=== PATIENT | male | born 1970 | race African-American/Black ===

== ENCOUNTER 2016-12-25 20:33 | Emergency (ER) | payer SELFPAY ==
[2016-12-25] MEDS ORDERED: Acetaminophen TAB* 325 MG PO ONE (21:59)
[2016-12-25] MEDS ORDERED: Ondansetron INJ* 2 MG/ML VIAL IV ONE (22:19)
[2016-12-25] MEDS ORDERED: Ketorolac INJ* 30 MG/ML 1 ML VIAL IV ONE (22:19)
[2016-12-25] MEDS: NS 0.9% 1000 ML* 2,000 ML IV ONE ×2 (22:22→23:05)
[2016-12-25] MEDS ORDERED: Oseltamivir CAP* 75 MG PO ONE (22:31)
[2016-12-25 22:36] LABS: Hematocrit 39 % (42-52); Hemoglobin 12.9 g/dl (14.0-18.0); Mean Corpuscular HGB Conc 34 g/dl (31-36); Mean Corpuscular Hemoglobin 28 pg (27-31); Mean Corpuscular Volume 85 fL (80-94); Mean Platelet Volume 8 um3 (7.4-10.4); Red Blood Count 4.55 10^6/ul (4.0-5.4); Red Cell Distribution Width 14 % (10.5-15); White Blood Count 9.7 10^3/ul (3.5-10.8)
[2016-12-25 22:47] LABS: Albumin 3.9 g/dL (3.2-5.2); BUN/Creatinine Ratio 8.2 (8-20); C Reactive Protein 12.09 mg/L (< 5.00); EGFR African American 108.1 (>60); EGFR Non-African American 84.1 (>60); Globulin 3.2 g/dL (2-4); Potassium 3.9 mmol/L (3.5-5.0); Total Bilirubin 0.5 mg/dL (0.2-1.0); Total Protein 7.1 g/dL (6.4-8.9)
--- NOTE | 2016-12-25 23:20 | ED ---
Influenza-Like Illness - HPI Summary HPI Summary: Yesterday evening the patient began to not feel well and this AM developed a fever with cough, nausea, vomiting, bodyaches and headache. He has taken ibuprofen several times today without relief. He now feels nauseous and has vomited twice. He has been exposed to family members who have the flu. He denies CP, SOB, abdominal or neck pain. He has had minimal fluids and food today. - History of Current Complaint Chief Complaint: EDHeadache Time Seen by Provider: 12/25/16 21:58 Hx Obtained From: Patient, Family/Reflow Operator Onset/Duration: Gradual Onset Severity: Severe Associated Signs & Symptoms: Fever, Myalgia, Cough, Nasal Congestion, Headache, Vomiting Related Hx: Possible Flu/Infectious Exposure - Allergy/Home Medications Allergies/Adverse Reactions: Allergies Allergy/AdvReac Type Severity Reaction Status Date / Time No Known Allergies Allergy Verified 12/25/16 20:39 PMH/Surg Hx/FS Hx/Imm Hx Previously Healthy: Yes Infectious Disease History: No Infectious Disease History: Denies: Traveled Outside the [place] in Last 30 Days - Family History Known Family History: Positive: Hypertension - Social History Occupation: Employed Part-time Lives: With Family Alcohol Use: Rare Substance Use Type: Reports: None Substance Use Comment - Amount & Last Used: denies Smoking Status (MU): Current Every Day Smoker Cessation Counseling: Patient Advised to Stop Review of Systems Positive: Fever, Chills, Fatigue Negative: Sore Throat, Ear Ache Negative: Chest Pain Positive: Cough. Negative: Shortness Of Breath Positive: Vomiting, Nausea. Negative: Abdominal Pain, Diarrhea Positive: Myalgia Negative: Rash Positive: Headache All Other Systems Reviewed And Are Negative: Yes Physical Exam Triage Information Reviewed: Yes Vital Signs On Initial Exam: Initial Vitals Temp Pulse Resp BP Pulse Ox 100.4 F 117 22 107/72 97 12/25/16 20:39 12/25/16 20:39 12/25/16 20:39 12/25/16 20:39 12/25/16 20:39 Vital Signs Reviewed: Yes Appearance: Positive: Well-Appearing, Well-Nourished, Pain Distress Skin: Positive: Warm, Skin Color Reflects Adequate Perfusion, Dry, Soft Head/Face: Positive: Normal Head/Face Inspection Eyes: Positive: EOMI, ABIMAEL, Conjunctiva Clear ENT: Positive: Hearing grossly normal, Pharynx normal, TMs normal Neck: Positive: Supple, Nontender, No Lymphadenopathy. Negative: Nuchal Rigidity Respiratory/Lung Sounds: Positive: Clear to Auscultation, Breath Sounds Present Cardiovascular: Positive: RRR Abdomen Description: Positive: Nontender, Soft Bowel Sounds: Positive: Present Musculoskeletal: Positive: Strength/ROM Intact. Negative: Edema Left, Edema Right Neurological: Positive: Sensory/Motor Intact, Alert, Oriented to Person Place, Time, NV Bundle Intact Distally Psychiatric: Positive: Affect/Mood Appropriate AVPU Assessment: Alert - [place] Coma Scale Coma Scale Total: 15 Diagnostics - Vital Signs Vital Signs Temp Pulse Resp BP Pulse Ox 12/25/16 21:30 102.4 F 103 20 92/65 100 12/25/16 20:39 100.4 F 117 22 107/72 97 - Laboratory Lab Results: Lab Results 12/25/16 12/25/16 12/25/16 Range/Units 21:50 21:50 22:08 WBC 9.7 (3.5-10.8) 10^3/ul RBC 4.55 (4.0-5.4) 10^6/ul Hgb 12.9 L (14.0-18.0) g/dl Hct 39 L (42-52) % MCV 85 (80-94) fL MCH 28 (27-31) pg MCHC 34 (31-36) g/dl RDW 14 (10.5-15) % Plt Count 177 (150-450) 10^3/ul MPV 8 (7.4-10.4) um3 Neut % (Auto) 73.2 (38-83) % Lymph % (Auto) 12.1 L (25-47) % Ballard % (Auto) 14.3 H (1-9) % Eos % (Auto) 0.1 (0-6) % Baso % (Auto) 0.3 (0-2) % Absolute Neuts (auto) 7.1 (1.5-7.7) 10^3/ul Absolute Lymphs (auto) 1.2 (1.0-4.8) 10^3/ul Absolute Monos (auto) 1.4 H (0-0.8) 10^3/ul Absolute Eos (auto) 0 (0-0.6) 10^3/ul Absolute Basos (auto) 0 (0-0.2) 10^3/ul Absolute Nucleated RBC 0.01 10^3/ul Nucleated RBC % 0.1 Sodium 134 (133-145) mmol/L Potassium 3.9 (3.5-5.0) mmol/L Chloride 106 (101-111) mmol/L Carbon Dioxide 22 (22-32) mmol/L Anion Gap 6 (2-11) mmol/L BUN 8 (6-24) mg/dL Creatinine 0.97 (0.67-1.17) mg/dL Est GFR ( Amer) 108.1 (>60) Est GFR (Non-Af Amer) 84.1 (>60) BUN/Creatinine Ratio 8.2 (8-20) Glucose 123 H (70-100) mg/dL Calcium 9.0 (8.6-10.3) mg/dL Total Bilirubin 0.50 (0.2-1.0) mg/dL AST 21 (13-39) U/L ALT 11 (7-52) U/L Alkaline Phosphatase 50 (34-104) U/L C-Reactive Protein 12.09 H (< 5.00) mg/L Total Protein 7.1 (6.4-8.9) g/dL Albumin 3.9 (3.2-5.2) g/dL Globulin 3.2 (2-4) g/dL Albumin/Globulin Ratio 1.2 (1-3) Influenza A (Rapid) Positive H (Negative) Influenza B (Rapid) Negative (Negative) Result Diagrams: 12/25/16 21:50 12/25/16 21:50 Lab Statement: Any lab studies that have been ordered have been reviewed, and results considered in the medical decision making process. Re-Evaluation - Re-Evaluation First Eval Re-Evaluation Time: 23:25 Change: Improved Comment: patient is more comfortable Flu Symptom Course/Dx - Diagnoses Differential Diagnosis/HQI/PQRI: Positive: Bronchitis, Influenza, Pneumonia, RSV , Upper Respiratory Infection Provider Diagnoses: Influenza Discharge - Discharge Plan Condition: Stable Disposition: HOME Prescriptions: Oseltamivir CAP* [Tamiflu CAP*] 75 mg PO BID #9 cap Patient Education Materials: Influenza (ED) Referrals: [facility] [Outside] Additional Instructions: Please take the Tamiflu prescription until it is completely gone. Also take ibuprofen (which is Advil) 600mg every 6 hours, and Tylenol 650 mg every 4 hours to keep your fever and body aches reduced. Get plenty of rest and drink extra fluids while you recover. You can call the number provided to establish care with a regular provider for follow-up care. Return to the emergency department if your symptoms worsen.
[2016-12-26 00:06] VITALS: BP 111/71
== END 2016-12-26 00:04 | disposition home or self-care (01) ==
LOC: ED 20:33
DX: J11.1 Influenza due to unidentified influenza virus with other respiratory manifestations (principal); R50.9 Fever, unspecified; R05 Cough; R11.2 Nausea with vomiting, unspecified; R51 Headache; F17.210 Nicotine dependence, cigarettes, uncomplicated
CPT/HCPCS: 36415; 80053; 85025; 86140; 87502; 96374; 96375; 99283; A9270-GY; J1885; J2405

== ENCOUNTER 2017-08-27 08:41 | Emergency (ER) | payer OTHER ==
[2017-08-27 09:07] VITALS: BP 119/82
--- NOTE | 2017-08-27 09:59 | ED ---
Skin Complaint - HPI Summary HPI Summary: 47 male presents to ED with complaints of what he believes is an infected bug bite just under left eye that began yesterday. Patient states when he woke up this morning it was much worse, redness, swollen, with discharge and pain. Patient states it came to a head and he popped it this morning. However it is still very painful and swollen. Denies eye involvement and vision changes. Has been applying hydrocortisone cream with some improvement. Admits to pruritis. No current discharge, it is just crusted with redness. Denies any other similar wounds or rashes. Denies PMHx. No other medications. Denies known source however thought it was an insect/spider bite. No other complaints at this time. Denies fever. - History of Current Complaint Chief Complaint: EDRashSkinAbscess Time Seen by Provider: 08/27/17 09:24 Stated Complaint: LT EYE PAIN Hx Obtained From: Patient Onset/Duration: Started Days Ago - yesterday 08/26/17, Still Present, Worse Since Skin Exposure Onset/Duration: Days Ago - yesterday morning Timing: Constant Onset Severity: Moderate Current Severity: Moderate Pain Intensity: 5 Pain Scale Used: 0-10 Numeric Skin Location: Face - left cheek, under left eye Character: Swelling, Pruritus, Redness, Raised, Painful Aggravating Symptom(s): Touch Alleviating Symptom(s): Treatment ST[employer]: - hydrocortisone cream, "popping it" Associated Signs & Symptoms: Rash Related History: Possible Reaction to: Insect - Allergy/Home Medications Allergies/Adverse Reactions: Allergies Allergy/AdvReac Type Severity Reaction Status Date / Time No Known Allergies Allergy Verified 08/27/17 09:03 PMH/Surg Hx/FS Hx/Imm Hx Endocrine/Hematology History: Denies: Hx Diabetes Cardiovascular History: Denies: Hx Hypertension Respiratory History: Denies: Hx Asthma - Surgical History Surgery Procedure, Year, and Place: n/a - Immunization History Immunizations Up to Date: Yes Infectious Disease History: No Infectious Disease History: Denies: Traveled Outside the [place] in Last 30 Days - Family History Known Family History: Positive: Hypertension - Social History Alcohol Use: Occasionally Substance Use Type: Reports: None Substance Use Comment - Amount & Last Used: denies Smoking Status (MU): Current Every Day Smoker Review of Systems Constitutional: Negative Eyes: Negative Cardiovascular: Negative Respiratory: Negative Positive: Rash - face, +/-bug bite All Other Systems Reviewed And Are Negative: Yes Physical Exam Triage Information Reviewed: Yes Vital Signs On Initial Exam: Initial Vitals Temp Pulse Resp BP Pulse Ox 97.8 F 71 16 119/82 100 08/27/17 08:51 08/27/17 08:51 08/27/17 08:51 08/27/17 08:51 08/27/17 08:51 Vital Signs Reviewed: Yes Appearance: Positive: Well-Appearing, No Pain Distress, Well-Nourished Skin: Positive: Warm, Skin Color Reflects Adequate Perfusion, Dry, Tender - at cellulitis left cheek, Erythema @ - under left eye, on left cheek, with noteable raised circular head crusted over, without current discharge. surrounding mild cellulitis, no blanchable, warm to touch, tender. No eye/ periorbital involvement. rest of skin exam normal. Negative: Cold, Numb, Cyanosis @, Diaphoretic, Jaundiced, Pale, Mass @ Head/Face: Positive: Normal Head/Face Inspection. Negative: Scalp Eyes: Positive: Normal, EOMI, ABIMAEL, Conjunctiva Clear ENT: Positive: Normal ENT inspection, Hearing grossly normal, Pharynx normal, TMs normal Neck: Positive: Supple, Nontender, No Lymphadenopathy Respiratory/Lung Sounds: Positive: Clear to Auscultation, Breath Sounds Present. Negative: Decreased Breath Sounds, Rales, Rhonchi, Wheezes Cardiovascular: Positive: Normal, RRR, Pulses are Symmetrical in both Upper and Lower Extremities. Negative: Murmur, Rub Abdomen Description: Positive: Nontender Bowel Sounds: Positive: Present Musculoskeletal: Positive: Normal, Strength/ROM Intact Neurological: Positive: Normal, Sensory/Motor Intact, Alert, Oriented to Person Place, Time Psychiatric: Positive: Affect/Mood Appropriate - Haylee Coma Scale Coma Scale Total: 15 Diagnostics - Vital Signs Vital Signs Temp Pulse Resp BP Pulse Ox 08/27/17 08:51 97.8 F 71 16 119/82 100 - Laboratory Lab Statement: Any lab studies that have been ordered have been reviewed, and results considered in the medical decision making process. Course/Dx - Course Course Of Treatment: no discharge availabel for culture. appears patient is suffering from infected wound with mild surrounding cellulitis. in fear of it worsening and due to location with give oral antibotic, apply triple anitbiotic topically and continue hydrocortisone for pruritis/edema 1-2 daily as needed. warm/cool compresses. ibuprofen for fever and pain. no fever or concern for other etiology. Follow up PCP. Aware of worsening signs and symptoms. - Differential Diagnoses - Skin Complaint Differential Diagnoses: Abscess, Allergic Reaction, Cellulitis, Local Allergic Reaction, MRSA - Diagnoses Provider Diagnoses: Cellulitis of face Discharge - Discharge Plan Condition: Stable Disposition: HOME Prescriptions: Cephalexin CAP* [Keflex CAP*] 500 mg PO BID #14 cap Ibuprofen TAB* [Motrin TAB* 600 MG] 600 mg PO Q8H PRN #15 tab PRN Reason: Pain Patient Education Materials: Cellulitis (ED) Referrals: Imer Lew MD [Primary Care Provider] - Additional Instructions: Take prescribed antibiotic as directed until entire dose is finished, even if symptoms do not improve. Ibuprofen for discomfort and inflammation, only as needed. Take with food. Apply triple antibiotic ointment such as neosporin or bacitracin multiple times daily. Continue use of hydrocortinsone cream twice daily for itching and redness. Apply warm/cool compresses daily, as discussed. Do not pick at. Keep clean and dry. If symptoms worsen or do not improve please seek medical attention. Follow up with primary care provider.
== END 2017-08-27 10:07 | disposition home or self-care (01) ==
LOC: ED 08:41
DX: L03.211 Cellulitis of face (principal); R21 Rash and other nonspecific skin eruption; F17.210 Nicotine dependence, cigarettes, uncomplicated; T14.8XXA Other injury of unspecified body region, initial encounter; W57.XXXA Bitten or stung by nonvenomous insect and other nonvenomous arthropods, initial encounter; Y93.9 Activity, unspecified; Y92.9 Unspecified place or not applicable
CPT/HCPCS: 99281

== ENCOUNTER → 2017-09-25 08:04 | Emergency (ER) | payer OTHER ==
[~2017-09-25 08:04] MED LIST: Ketorolac INJ* 60 MG/2 ML VIAL IM ONE
[2017-09-25 08:12] VITALS: BP 115/74
--- NOTE | 2017-09-25 18:47 | ED ---
Chuck Clay Angela, scribed for Simba Gupta MD on 09/25/17 at 0821 . Throat Pain/Nasal Congestion - HPI Summary HPI Summary: This pt is a 47 y/o male presenting to [facility] c/o dental pain. Pt reports he has a dental appointment on October 04. He notes he is here because the pain is not tolerable and he needs to go to work. - History of Current Complaint Chief Complaint: EDDentalPain Time Seen by Provider: 09/25/17 08:18 Hx Obtained From: Patient Onset/Duration: Lasting Days, Still Present Severity: Severe Associated Signs And Symptoms: Negative: Dysphagia, FB Sensation, Drooling, Wheezing, Hoarseness, Sinus Discomfort, Nasal Discharge Cough: None - Allergies/Home Medications Allergies/Adverse Reactions: Allergies Allergy/AdvReac Type Severity Reaction Status Date / Time No Known Allergies Allergy Verified 09/25/17 08:12 PMH/Surg Hx/FS Hx/Imm Hx Endocrine/Hematology History: Denies: Hx Diabetes Cardiovascular History: Reports: Hx Hypercholesterolemia, Hx Hypertension Respiratory History: Denies: Hx Asthma - Surgical History Surgery Procedure, Year, and Place: n/a Infectious Disease History: No Infectious Disease History: Denies: Traveled Outside the [place] in Last 30 Days - Family History Known Family History: Positive: Hypertension - Social History Alcohol Use: Occasionally Substance Use Type: Reports: None Substance Use Comment - Amount & Last Used: denies Smoking Status (MU): Current Every Day Smoker Review of Systems Negative: Fever, Chills Eyes: Negative Positive: Dental Pain Cardiovascular: Negative Respiratory: Negative Gastrointestinal: Negative All Other Systems Reviewed And Are Negative: Yes Physical Exam - Summary Physical Exam Summary: VITAL SIGNS: Reviewed. GENERAL: Patient is a well-developed and nourished male. Patient is not in any acute respiratory distress. HEAD AND FACE: No signs of trauma. No ecchymosis, hematomas or skull depressions. No sinus tenderness. EYES: PERRLA, EOMI x 2, No injected conjunctiva, no nystagmus. EARS: Hearing grossly intact. Ear canals and tympanic membranes are within normal limits. MOUTH: Oropharynx within normal limits. There is diffuse dental cavities. There are no signs of gingivitis, no trismus, no swelling of the tongue or lips. NECK: Supple, trachea is midline, no adenopathy, no JVD, no carotid bruit, no c- spine tenderness, neck with full ROM. CHEST: Symmetric, no tenderness at palpation LUNGS: Clear to auscultation bilaterally. No wheezing or crackles. CVS: Regular rate and rhythm, S1 and S2 present, no murmurs or gallops appreciated. ABDOMEN: Soft, non-tender. No signs of distention. No rebound no guarding, and no masses palpated. Bowel sounds are normal. EXTREMITIES: FROM in all major joints, no edema, no cyanosis or clubbing. NEURO: Alert and oriented x 3. No acute neurological deficits. Speech is normal and follows commands. SKIN: Dry and warm Triage Information Reviewed: Yes Vital Signs On Initial Exam: Initial Vitals Temp Pulse Resp BP Pulse Ox 97.7 F 68 14 115/74 99 09/25/17 08:09 09/25/17 08:09 09/25/17 08:09 09/25/17 08:09 09/25/17 08:09 Vital Signs Reviewed: Yes Diagnostics - Vital Signs Vital Signs Temp Pulse Resp BP Pulse Ox 09/25/17 08:09 97.7 F 68 14 115/74 99 - Laboratory Lab Statement: Any lab studies that have been ordered have been reviewed, and results considered in the medical decision making process. EENT Course/Dx - Course Assessment/Plan: This pt is a 47 y/o male presenting to [facility] c/o dental pain. Pt reports he has a dental appointment on October 04. He notes he is here because the pain is not tolerable and he needs to go to work. The pt has dental cavities and dental pain. The pt was given toradol for the pain and also amoxicillin. At this point he will be discharged home with follow up from his dentist. The pt will be given a prescription for ibuprofen, norco, and amoxicillin. The pt was instructed that he needs to follow up with his dentist. He understands and agrees. Pt is hemodynamically stable, alert and oriented x3. - Differential Diagnoses Differential Diagnoses: Other - Dental pain, Dental cavities, gingivitis - Diagnoses Provider Diagnoses: Dental cavities Discharge - Discharge Plan Condition: Stable Disposition: HOME Prescriptions: Amoxicillin PO (*) [Amoxicillin 875 MG (*)] 875 mg PO BID #20 tab HYDROcodone/ACETAMIN 5-325 MG* [Brumley 5-325 TAB*] 1 tab PO Q4H PRN #12 tab MDD 4 PRN Reason: Pain Ibuprofen TAB* [Motrin TAB* 600 MG] 600 mg PO Q8H PRN #20 tab PRN Reason: Pain Patient Education Materials: Cavity Preventive (For the teeth or gums) Forms: *Work Release Referrals: Imer Lew MD [Primary Care Provider] - Additional Instructions: See your dentist as scheduled on Oct.04. RETURN TO THE ED FOR ANY WORSENING SYMPTOMS. The documentation as recorded by the Chuck concepcion Angela accurately reflects the service I personally performed and the decisions made by Alonso ellis Walter, MD.
== END | disposition home or self-care (01) ==
LOC: ED 08:04
DX: K02.9 Dental caries, unspecified (principal); K08.89 Other specified disorders of teeth and supporting structures; E78.00 Pure hypercholesterolemia, unspecified; I10 Essential (primary) hypertension; F17.210 Nicotine dependence, cigarettes, uncomplicated
CPT/HCPCS: 96372; 99281; J1885

== ENCOUNTER 2018-01-08 11:33 | Emergency (ER) | payer MEDICAID, OTHER ==
[2018-01-08] MEDS ORDERED: Lidocaine 1% INJ* 10 MG/ML 30 ML SDV INJ ONE (12:17)
--- NOTE | 2018-01-08 12:20 | ED ---
Skin Complaint - HPI Summary HPI Summary: 47-year-old male presents with left abscess on his cheek for the past day. He denies any fevers. He denies any chills. He states he put some warm compresses on the area and came to the head. It started as a pimple. He denies any discharge from the area. Denies any dental pain. He denies any sinus pain. denies any history of mrsa. He is not diabetic. - History of Current Complaint Chief Complaint: EDRashSkinAbscess Time Seen by Provider: 01/08/18 11:42 Stated Complaint: ABCESS ON LT CHEEK Pain Intensity: 10 - Allergy/Home Medications Allergies/Adverse Reactions: Allergies Allergy/AdvReac Type Severity Reaction Status Date / Time No Known Allergies Allergy Verified 09/25/17 08:12 PMH/Surg Hx/FS Hx/Imm Hx Endocrine/Hematology History: Denies: Hx Diabetes Cardiovascular History: Reports: Hx Hypercholesterolemia, Hx Hypertension Respiratory History: Denies: Hx Asthma - Surgical History Surgery Procedure, Year, and Place: n/a Infectious Disease History: No Infectious Disease History: Denies: Traveled Outside the [place] in Last 30 Days - Family History Known Family History: Positive: Hypertension - Social History Alcohol Use: Occasionally Substance Use Type: Reports: None Substance Use Comment - Amount & Last Used: denies Smoking Status (MU): Current Every Day Smoker Review of Systems Negative: Fever Negative: Chest Pain Negative: Shortness Of Breath Positive: Other - left cheek abscess All Other Systems Reviewed And Are Negative: Yes Physical Exam Triage Information Reviewed: Yes Vital Signs On Initial Exam: Initial Vitals Temp Pulse Resp BP Pulse Ox 97.9 F 82 16 117/77 98 01/08/18 11:34 01/08/18 11:34 01/08/18 11:34 01/08/18 11:34 01/08/18 11:34 Vital Signs Reviewed: Yes Appearance: Positive: Well-Appearing Skin: Positive: Other - 3cm by 2cm abscess to left cheek Eyes: Positive: Normal, EOMI, ABIMAEL, Conjunctiva Clear ENT: Positive: Normal ENT inspection, Pharynx normal, TMs normal Respiratory/Lung Sounds: Positive: Clear to Auscultation, Breath Sounds Present Cardiovascular: Positive: Normal, RRR Musculoskeletal: Positive: Normal Neurological: Positive: Normal Psychiatric: Positive: Normal Procedures - Incision and Drainage Site: left cheek Anesthesia: Local Instrument(s): Scalpel Diagnostics - Vital Signs Vital Signs Temp Pulse Resp BP Pulse Ox 01/08/18 11:34 97.9 F 82 16 117/77 98 - Laboratory Lab Statement: Any lab studies that have been ordered have been reviewed, and results considered in the medical decision making process. Course/Dx - Course Course Of Treatment: 47-year-old male presents with left abscess on his cheek for the past day. He denies any fevers. He denies any chills. He states he put some warm compresses on the area and came to the head. It started as a pimple. He denies any discharge from the area. Denies any dental pain. He denies any sinus pain. denies any history of mrsa. He is not diabetic. on exam has abscess to left cheek that successfully I&D. will place on bactrim. patient understand and agrees with plan. - Differential Diagnoses - Skin Complaint Differential Diagnoses: Abscess, Cellulitis, Contact Dermatitis - Diagnoses Provider Diagnoses: Abscess of left external cheek Discharge - Discharge Plan Condition: Good Disposition: HOME Prescriptions: Sulfamethox/Trimethoprim DS* [Bactrim DS 800/160 TAB*] 1 tab PO BID #19 tab Patient Education Materials: Abscess (ED) Referrals: Imer Lew MD [Primary Care Provider] - Additional Instructions: Take antibiotic twice a day for 10 days, first dose given in ED Apply warm compresses to area Take ibuprofen or Tylenol for pain every 6 hours Return to ED if develop fever, area of redness spreads, or any new or worsening symptoms
[2018-01-08] MEDS ORDERED: Sulfamethox/Trimethoprim DS 800/160* TAB PO ONE (12:23)
[2018-01-08] MEDS ORDERED: Ketorolac INJ* 60 MG/2 ML VIAL IM ONE (13:30)
[2018-01-08 14:25] VITALS: BP 118/72
== END 2018-01-08 14:22 | disposition home or self-care (01) ==
LOC: ED 11:33
DX: L02.01 Cutaneous abscess of face (principal); F17.210 Nicotine dependence, cigarettes, uncomplicated
CPT/HCPCS: 87070; 87205; 96372; 99282; A9270-GY; J1885

== ENCOUNTER 2018-11-03 19:19 | Emergency (ER) | payer SELFPAY ==
--- NOTE | 2018-11-03 19:44 | ED ---
Throat Pain/Nasal Congestion - HPI Summary HPI Summary: 48 year old male presents with 2 day history of ear lobe pain. Patient believes he was "bit by something" and now has a lump in his ear lobe that is painful. Patient rates his pain as an 8/10 and states there is some radiation to his jaw and he has been having some headaches since it began. Patient denies fevers, chills, neck pain, changes in hearing, discharge from ear, CP, and SOB. Patient was treated a few months ago for an abscess on his cheek. States that healed well but is starting to return. Patient states he is otherwise healthy. - History of Current Complaint Chief Complaint: EDEarPain Time Seen by Provider: 11/03/18 19:36 Hx Obtained From: Patient Onset/Duration: Sudden Onset, Lasting Days Severity: Moderate Associated Signs And Symptoms: Positive: Negative - Allergies/Home Medications Allergies/Adverse Reactions: Allergies Allergy/AdvReac Type Severity Reaction Status Date / Time No Known Allergies Allergy Verified 09/25/17 08:12 PMH/Surg Hx/FS Hx/Imm Hx Previously Healthy: Yes Endocrine/Hematology History: Denies: Hx Diabetes Cardiovascular History: Reports: Hx Hypercholesterolemia, Hx Hypertension Respiratory History: Denies: Hx Asthma - Surgical History Surgery Procedure, Year, and Place: n/a Infectious Disease History: No Infectious Disease History: Denies: Traveled Outside the [place] in Last 30 Days - Family History Known Family History: Positive: Hypertension - Social History Alcohol Use: Occasionally Substance Use Type: Reports: None Substance Use Comment - Amount & Last Used: denies Smoking Status (MU): Current Every Day Smoker Review of Systems Negative: Fever, Chills, Fatigue Negative: Blurred Vision, Diplopia Positive: Ear Ache. Negative: Nasal Discharge Negative: Chest Pain Negative: Shortness Of Breath Negative: Abdominal Pain, Vomiting, Nausea Positive: Other - lump in ear lobe Positive: Headache. Negative: Paresthesia, Numbness Psychological: Normal All Other Systems Reviewed And Are Negative: Yes Physical Exam Triage Information Reviewed: Yes Vital Signs On Initial Exam: Initial Vitals Temp Pulse Resp BP Pulse Ox 97.2 F 82 18 115/74 97 11/03/18 19:20 11/03/18 19:20 11/03/18 19:20 11/03/18 19:20 11/03/18 19:20 Vital Signs Reviewed: Yes Appearance: Positive: Well-Appearing, No Pain Distress, Well-Nourished Skin: Positive: Warm, Dry Head/Face: Positive: Normal Head/Face Inspection. Negative: TMJ Tenderness Eyes: Positive: EOMI, ABIMAEL, Conjunctiva Clear ENT: Positive: Hearing grossly normal, Pharynx normal, TMs normal, Other - tender, round, 2cm cyst-like mass in the right ear lobe.. Negative: Nasal congestion, Nasal drainage Neck: Positive: Supple, Nontender, No Lymphadenopathy Respiratory/Lung Sounds: Positive: Clear to Auscultation, Breath Sounds Present Cardiovascular: Positive: Normal, RRR Musculoskeletal: Positive: Normal Neurological: Positive: Normal Psychiatric: Positive: Normal AVPU Assessment: Alert Procedures - Incision and Drainage right ear Site: right ear lobe Anesthesia: Lidocaine - 2% lidocaine with epi Instrument(s): Scalpel Diagnostics - Vital Signs Vital Signs Temp Pulse Resp BP Pulse Ox 11/03/18 19:20 97.2 F 82 18 115/74 97 - Laboratory Lab Statement: Any lab studies that have been ordered have been reviewed, and results considered in the medical decision making process. EENT Course/Dx - Course Course Of Treatment: 48 year old male presents with right ear pain and a lump in his right ear lobe. Patient denies fevers, chills, nausea, and rash. States he has been experiencing some headaches associated with pain. Physical exam reveals a tender, 2cm, cystic lesion in the right ear lobe. Patient decided to have the lesion drained for pain relief. An I&D was performed on the right ear lobe by Michelle KABA. The patient tolerated the procedure well. Placed on Keflex 500mg BID for prophylaxis. told to place heat on the area. patient understand and agrees with plan. - Differential Diagnoses Differential Diagnoses: Cellulitis, Other - abscess, cyst - Diagnoses Provider Diagnoses: Cyst on ear Discharge - Sign-Out/Discharge Documenting (check all that apply): Patient Departure - Discharge Plan Condition: Good Disposition: HOME Prescriptions: Cephalexin CAP* [Keflex CAP*] 500 mg PO BID #13 cap Patient Education Materials: Cyst (ED) Referrals: Imer Lew MD [Primary Care Provider] - Additional Instructions: take keflex twice a day for [address] heat on the area follow up with primary within 5 days Return to ED if develop any new or worsening symptoms - Billing Disposition and Condition Condition: GOOD Disposition: Home
[2018-11-03] MEDS ORDERED: Lidocaine 1% MPF wEPI 200,000* 30 ML SDV INJ ONE (19:53)
[2018-11-03] MEDS ORDERED: Lidocaine 2% EPI 1:200000 MPF*10-20 ML VIAL ONE (20:09)
[2018-11-03] MEDS ORDERED: Cephalexin CAP* 500 MG PO ONE (20:41)
[2018-11-03 20:49] VITALS: BP 96/71
== END 2018-11-03 20:50 | disposition home or self-care (01) ==
LOC: ED 19:19
DX: L72.0 Epidermal cyst (principal); H92.09 Otalgia, unspecified ear; F17.210 Nicotine dependence, cigarettes, uncomplicated
CPT/HCPCS: 87070; 87205; 87640; 87641; 96374; 99282; A9270-GY; J2001